=== PATIENT | female | born 1985 | race Caucasian/White ===

== ENCOUNTER 2018-08-04 10:35 | Emergency (ER) | payer SELFPAY ==
[~2018-08-04] VITALS: Ht 185.4 cm; Wt 102.1 kg
[~2018-08-04 10:35] MED LIST: NAPR500T8 PO; OXYC1TAB15 PO
[2018-08-04] MEDS ORDERED: ONDANSETRON PF 4 MG/2 ML VIAL. IV ONE (11:30)
[2018-08-04] MEDS ORDERED: IV NORMAL SALINE 1000ML BAG 1,000 ML IV ONE (11:30)
[2018-08-04] MEDS ORDERED: fentaNYL PF VIAL 100 MCG/2 ML VIAL IV ONE (11:30)
[2018-08-04 11:51] LABS: BASO # 0.1 x10^3/uL (0.0-0.2); BASO % 1 % (0-3); EOS # 0.3 x10^3/uL (0.0-0.7); EOS % 4 % (0-3); HEMATOCRIT 34.6 % (36.0-47.0); HEMOGLOBIN 11.8 g/dL (12.0-15.5); LYMPH # 2.4 x10^3/uL (1.0-4.8); LYMPH % 32 % (24-48); MEAN CORPUSCULAR HEMOGLOBIN 32 pg (25-35); MEAN CORPUSCULAR HGB CONC 34 g/dL (31-37); MEAN CORPUSCULAR VOLUME 94 fL (79-100); MONO # 0.6 x10^3/uL (0.0-1.1); MONO % 8 % (0-9); NEUT % 55 % (31-73); PLATELET COUNT 313 x10^3/uL (140-400); RED BLOOD COUNT 3.67 x10^6/uL (3.50-5.40); RED CELL DISTRIBUTION WIDTH 13.2 % (11.5-14.5); WHITE BLOOD COUNT 7.3 x10^3/uL (4.0-11.0)
[2018-08-04 11:53] LABS: BILIRUBIN,URINE NEGATIVE (NEG); CLARITY,URINE CLEAR; COLOR,URINE YELLOW; NITRITE,URINE NEGATIVE (NEG); PH,URINE 7.5; PROTEIN,URINE NEGATIVE (NEG-TRACE); UROBILINOGEN,URINE 0.2 mg/dL (0.2 mg/dL)
[2018-08-04 12:00] LABS: CALCIUM 8.5 mg/dL (8.5-10.1); CREATININE 0.8 mg/dL (0.6-1.0); GFR 84.2; POTASSIUM 4.3 mmol/L (3.5-5.1)
[2018-08-04 12:06] LABS: ALBUMIN 3.4 g/dL (3.4-5.0); ALBUMIN/GLOBULIN RATIO 1.1 (1.0-1.7); TOTAL BILIRUBIN 0.5 mg/dL (0.2-1.0); TOTAL PROTEIN 6.5 g/dL (6.4-8.2)
[2018-08-04 12:08] LABS: BACTERIA,URINE 0 /HPF (0-FEW)
[2018-08-04] MEDS ORDERED: AZITHROMYCIN 250 MG TABLET. PO ONE (12:15)
[2018-08-04] MEDS ORDERED: cefTRIAXone IM 250 MG VIAL IM ONE (12:15)
--- NOTE | 2018-08-04 13:01 | RAD ---
Pelvic ultrasound, 08/04/2018: History: Left-sided pelvic pain Transabdominal scans were obtained. The uterus measures 10 x 7 x 5 cm. The central uterine echo complex measures 5 mm. No uterine abnormality is seen. There is a 4.3 cm cyst in the left ovary. Its margins are smooth. The right ovary is unremarkable. There is blood flow in both ovaries. No other adnexal abnormality is seen. No free fluid is evident in the pelvis. IMPRESSION: 1. Small left ovarian cyst. 2. The pelvic ultrasound is otherwise unremarkable.
[2018-08-04] MEDS ORDERED: AZIT250T6 PO (13:50)
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
[2018-08-04 14:19] VITALS: BP 117/84
[2018-08-07 14:20] LABS: GC PROBE Negative (Negative)
--- NOTE | 2018-08-09 17:38 | VNOTE ---
CALL BACK NOTE CALL BACK Microbiology 08/04/18 Wet Prep - Final, Complete 08/04/18 Urine Culture - Final, Complete 08/04/18 Urine Culture Result 1 (GREG) - Final, Complete 08/04/18 Antimicrobic Susceptibility - Final, Complete Spoke with patient re: urine culture result. Pt states she continues to have lower abdominal discomfort. Prescription for ciprofloxacin 500 mg PO BID x7d # 14 no refills called into pharmacy at [phone]. JEYSON ZAYAS DIESEL PILE DRIVER OPERATOR Aug 09, 2018 17:38
== END 2018-08-04 14:21 | disposition home or self-care (01) ==
LOC: ER 10:35
DX: N93.9 Abnormal uterine and vaginal bleeding, unspecified (principal); N94.10 Unspecified dyspareunia; Z88.0 Allergy status to penicillin
CPT/HCPCS: 36415; 76856; 80053; 81001; 81025; 83690; 85025; 87086; 87186; 87491; 87591; 96372; 96374; 96375; 99284; J0696; J2405; J3010; J7030; Q0111; Q0144

== ENCOUNTER 2018-10-23 19:30 | Emergency (ER) | payer SELFPAY ==
[~2018-10-23 19:30] MED LIST changes: +AZIT250T6 PO
== END 2018-10-23 19:36 | disposition left against medical advice (07) ==
LOC: ER 19:30
DX: M54.5 Low back pain (principal); Z53.21 Procedure and treatment not carried out due to patient leaving prior to being seen by health care provider; V49.9XXA Car occupant (driver) (passenger) injured in unspecified traffic accident, initial encounter; Y93.89 Activity, other specified; Y92.89 Other specified places as the place of occurrence of the external cause; Y99.8 Other external cause status

== ENCOUNTER 2019-03-26 11:55 | Emergency (ER) | payer SELFPAY ==
[~2019-03-26] VITALS: Ht 185.4 cm; Wt 113.4 kg
[2019-03-26 12:26] VITALS: BP 136/60
[2019-03-26] MEDS ORDERED: IBUPROFEN 400 MG TABLET. PO ONE (12:45)
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
[2019-03-26] MEDS ORDERED: TRAM-48 PO (13:58)
[2019-03-26] MEDS ORDERED: CYCL10TA2 PO (13:58)
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
== END 2019-03-26 14:25 | disposition home or self-care (01) ==
LOC: ER 11:55
DX: S80.12XA Contusion of left lower leg, initial encounter (principal); F17.200 Nicotine dependence, unspecified, uncomplicated; Z88.0 Allergy status to penicillin; V03.00XA Pedestrian on foot injured in collision with car, pick-up truck or van in nontraffic accident, initial encounter; Y92.481 Parking lot as the place of occurrence of the external cause; Y93.01 Activity, walking, marching and hiking; Y99.8 Other external cause status
CPT/HCPCS: 73562; 73610; 73630; 99284

== ENCOUNTER 2019-09-14 11:33 | Emergency (ER) | payer SELFPAY ==
[~2019-09-14] VITALS: Ht 185.4 cm; Wt 102.2 kg
[~2019-09-14 11:33] MED LIST changes: +CYCL10TA2 PO; +TRAM-48 PO
[2019-09-14 11:45] VITALS: BP 135/83
[2019-09-14] MEDS ORDERED: ORPHENADRINE CITRATE 60 MG/2 ML VIAL. IM ONE (13:00)
[2019-09-14] MEDS ORDERED: HYDROcodone/APAP 5/325MG 1 TAB TABLET PO ONE (13:00)
[2019-09-14 13:03] LABS: BILIRUBIN,URINE NEGATIVE (NEG); CLARITY,URINE CLEAR; COLOR,URINE AMBER; NITRITE,URINE POSITIVE (NEG); PH,URINE 7.5; PROTEIN,URINE NEGATIVE (NEG-TRACE)
[2019-09-14 13:22] LABS: BACTERIA,URINE MANY /HPF (0-FEW); RBC,URINE 0 /HPF (0-2); SQUAMOUS EPITHELIAL CELL,UR MANY /LPF; WBC,URINE 20-40 /HPF (0-4)
--- NOTE | 2019-09-14 13:23 | RAD ---
SHOULDER 2+V RIGHT, ELBOW RIGHT 3V, HUMERUS RIGHT Clinical Indication: Fall, right upper extremity pain. Comparison: None. Findings: 3 views right elbow. No elbow joint effusion. No acute fracture or dislocation. The mineralization is normal. No soft tissue swelling is appreciated. Right humerus, 2 views. No acute fracture. Soft tissues unremarkable. Right shoulder, 3 views. No acute fracture or dislocation. Joint spaces maintained. Right upper lung is clear. No acute right rib abnormality. Soft tissues unremarkable. IMPRESSION: No acute fracture or dislocation. Electronically signed by: Sudheer Lu MD (09/14/2019 1:20 PM) [id number]
[2019-09-14] MEDS ORDERED: ORPH100T PO (13:28)
[2019-09-14] MEDS ORDERED: IBUP-1007 PO (13:28)
[2019-09-14] MEDS ORDERED: NITR100C62 PO (13:28)
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
== END 2019-09-14 13:53 | disposition home or self-care (01) ==
LOC: ER 11:33
DX: S40.011A Contusion of right shoulder, initial encounter (principal); N39.0 Urinary tract infection, site not specified; F17.200 Nicotine dependence, unspecified, uncomplicated; Z98.890 Other specified postprocedural states; Z98.51 Tubal ligation status; Z88.0 Allergy status to penicillin; W10.8XXA Fall (on) (from) other stairs and steps, initial encounter; Y93.89 Activity, other specified; Y92.89 Other specified places as the place of occurrence of the external cause; Y99.8 Other external cause status
CPT/HCPCS: 73030; 73060; 73080; 81001; 81025; 87086; 96372; 99285; J2360